=== PATIENT | male | born 1970 | race Caucasian/White ===

== ENCOUNTER 2023-06-06 14:33 | Outpatient (CLI) | payer OTHER, SELFPAY | END 2023-06-06 14:34 | disposition home or self-care (01) | LOC: NFLDREF 14:35 | PROVIDERS: PCP Family Medicine; Visit Provider Family Medicine | DX: Z00.00 Encounter for general adult medical examination without abnormal findings (principal); E66.3 Overweight; Z13.6 Encounter for screening for cardiovascular disorders; Z13.1 Encounter for screening for diabetes mellitus | CPT/HCPCS: 80061 ==